=== PATIENT | male | born 1960 | race Hispanic/Latino ===

== ENCOUNTER 2022-07-25 11:07 | Emergency (ER) | payer OTHER ==
[2022-07-25] MEDS ORDERED: TDAP (DIPHTH,PERTUSS(ACELL),TET VAC) 0.5 ML VIAL IMVAC ONE (11:41)
--- NOTE | 2022-07-25 12:04 | ER ---
Nurse's Notes [facility] Name: Eric Renee Age: 62 yrs Sex: Male : 1960 Arrival Date: 07/25/2022 Time: 11:12 Bed 9 Private MD: Diagnosis: Puncture wound without foreign body, right foot Presentation: 07/25 11:23 Chief complaint: Patient states: Nail to bottom of R foot 1 hour [employer]. Coronavirus ll1 screen: Vaccine status: Patient reports receiving the 2nd dose of the covid vaccine. Client denies travel out of the [place] in the last 14 days. At this time, the client does not indicate any symptoms associated with coronavirus-19. Ebola Screen: Patient denies travel to an Ebola-affected area in the 21 days before illness onset. Initial Sepsis Screen: Does the patient meet any 2 criteria? No. Patient's initial sepsis screen is negative. Does the patient have a suspected source of infection? Yes: Bone or joint infection. Risk Assessment: Do you want to hurt yourself or someone else? Patient reports no desire to harm self or others. Onset of symptoms was July 25, 2022. 11:23 Method Of Arrival: Ambulatory ll1 11:23 Acuity: QUENTIN 4 ll1 Triage Assessment: 11:24 General: Appears in no apparent distress. Behavior is calm, cooperative, appropriate ll1 for age. Pain: Denies pain. Derm: Skin is pink, warm \T\ dry. Skin temperature is warm Wound noted plantart surface R foot Wound is puncture Reports nail through bottom of R foot. Musculoskeletal: Circulation, motion, and sensation intact. Capillary refill < 3 seconds. Historical: - Allergies: 11:24 No Known Allergies; ll1 - PMHx: 11:24 None; ll1 - PSHx: 11:24 None; ll1 - Immunization history:: Adult Immunizations up to date. - Social history:: Smoking status: Patient denies any tobacco usage or history of. Screenin:[facility] ED Fall Risk Assessment (Adult) Score/Fall Risk Level 0 - 2 = Low Risk ll1 Oriented to surroundings, Maintained a safe environment, Educated pt \T\ family on fall prevention, incl call for assistance when getting out of bed, Hourly rounding (assess needs \T\ fall precautionary measures) done. Abuse screen: Denies threats or abuse. Nutritional screening: No deficits noted. Tuberculosis screening: No symptoms or risk factors identified. Assessment: 11:42 Reassessment: No changes from previously documented assessment. Patient and/or family ll1 updated on plan of care and expected duration. Pain level reassessed. Patient is alert, oriented x 3, equal unlabored respirations, skin warm/dry/pink. Vital Signs: 11:23 BP 144 / 94; Pulse 70; Resp 17; Temp 98.2; Pulse Ox 99% ; Weight 70.76 kg; Height 5 ft. ll1 0 in. ; Pain 0/10; 11:23 Body Mass Index 30.47 (70.76 kg, 152.4 cm) ll1 11:23 Pain Scale: Adult ll1 ED Course: 11:12 Patient arrived in ED. am2 11:18 Tommie Blanca MD is Attending Physician. bs3 11:22 Arm band placed on Patient placed in an exam room, on a stretcher. ll1 11:24 Triage completed. ll1 11:35 Juanito Calles RN is Primary Nurse. jl7 11:51 Patient has correct armband on for positive identification. Bed in low position. Call ll1 light in reach. Side rails up X2. Cardiac monitoring not applicable on this patient. 11:59 XRAY Foot RIGHT 3 View In Process Unspecified. 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 ll1 Exp: 03/27/2023. Lot #: [id number]. } Route: IM; Site: right deltoid; Medication: 11:42 Vaccine Information Statement (VIS) provided today. Questions and/or concerns ll1 addressed. VIS edition date: December 13, 2020. Outcome: 12:03 Discharge ordered by . bs3 Signatures: Dispatcher [employer] EDMS Juanito Calles RN RN jl7 Lizette Cruz am2 Raffi Clinton RN RN ll1 Tommie Blanca MD MD bs3 Corrections: (The following items were deleted from the chart) 11:25 11:24 PMHx: Diabetes mellitus; ll1 ll1
--- NOTE | 2022-07-25 12:04 | EDPHYS ---
Physician Documentation [facility] Name: Eric Renee Age: 62 yrs Sex: Male : 1960 Arrival Date: 07/25/2022 Time: 11:12 Bed 9 Private MD: ED Physician Tommie Blanca HPI: 07/25 11:22 This 62 yrs old Male presents to ER via Unassigned with complaints of Leg bs3 Pain, Stepped on nail. 11:22 No past medical history presents after he stepped on a nail it went through his shoe it bs3 occurred approximately 10 AM no other complaints he did notice some blood. Historical: - Allergies: 11:24 No Known Allergies; ll1 - PMHx: 11:24 None; ll1 - PSHx: 11:24 None; ll1 - Immunization history:: Adult Immunizations up to date. - Social history:: Smoking status: Patient denies any tobacco usage or history of. ROS: 11:22 Constitutional: Negative for fever, chills bs3 11:22 All other systems are negative. Exam: 11:22 Constitutional: This is a well developed, well nourished patient who is awake, alert, bs3 and in no acute distress. Head/Face: Normocephalic, atraumatic. Chest/axilla: Normal chest wall appearance and motion. Nontender with no deformity. No lesions are appreciated. Cardiovascular: Regular rate and rhythm with a normal S1 and S2. symmetric pulses in upper extremities Back: No spinal tenderness. No costovertebral tenderness. Full range of motion. MS/ Extremity: Pulses equal, no cyanosis. Neurovascular intact. Full, normal range of motion. Puncture wound on right foot with small amount of blood Neuro: Awake and alert, GCS 15, oriented to person, place, time, and situation. Cranial nerves II-XII grossly intact. Motor strength 5/5 in all extremities. Sensory grossly intact. Psych: Awake, alert, with orientation to person, place and time. Behavior, mood, and affect are within normal limits. Vital Signs: 11:23 BP 144 / 94; Pulse 70; Resp 17; Temp 98.2; Pulse Ox 99% ; Weight 70.76 kg; Height 5 ft. ll1 0 in. ; Pain 0/10; 11:23 Body Mass Index 30.47 (70.76 kg, 152.4 cm) ll1 11:23 Pain Scale: Adult ll1 MDM: 11:18 Patient medically screened. bs3 11:22 Differential diagnosis: open fracture, Soft tissue injury, puncture wound. Data bs3 reviewed: vital signs, nurses notes. ED course: Update tetanus prophylaxis with Cipro as there could be Pseudomonas given it was a nail through a shoe. 12:02 Independent interpretation of the following test(s) in the Emergency Department X-Ray: bs3 My interpretation is No fracture or foreign body. 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 ll1 Exp: 03/27/2023. Lot #: [id number]. } Route: IM; Site: right deltoid; Disposition Summary: 07/25/22 12:03 Discharge Ordered Location: Home bs3 Problem: new bs3 Symptoms: have improved bs3 Condition: Stable bs3 Diagnosis - Puncture wound without foreign body, right foot bs3 Followup: bs3 - With: Private Physician - When: 5 - 6 days - Reason: Re-evaluation by your physician Discharge Instructions: - Discharge Summary Sheet bs3 - Puncture Wound, [id number] bs3 Forms: - Medication Reconciliation Form bs3 - Thank You Letter bs3 - Antibiotic Education bs3 - Prescription Opioid Use bs3 Prescriptions: - Cipro 500 mg Oral Tablet - take 1 tablet by ORAL route every 12 hours for 5 days; 10 tablet; Refills: 0, bs3 Product Selection Permitted Signatures: Dispatcher [employer] Raffi Vanegas RN RN ll1 Tommie Blanca MD MD bs3 Corrections: (The following items were deleted from the chart) 11:25 11:24 PMHx: Diabetes mellitus; ll1 ll1
--- NOTE | 2022-07-25 12:10 | RAD REPORT ---
EXAM DESCRIPTION: RAD - Foot Right 3 View - 07/25/2022 11:57 am CLINICAL HISTORY: Right foot pain status post injury FINDINGS: No fracture or dislocation is seen. A radiopaque foreign body not seen Hallux valgus deformity
[2022-07-25 12:52] VITALS: BP 122/78; TEMP 97.7; O2SAT 98
== END 2022-07-25 12:15 | disposition home or self-care (01) ==
LOC: ER 11:07
DX: S91.331A Puncture wound without foreign body, right foot, initial encounter (principal); Z23 Encounter for immunization
CPT/HCPCS: 90471; 99283